=== PATIENT | female | born 1985 | race African-American/Black ===

== ENCOUNTER 2023-03-10 13:57 | Emergency (ER) | payer MEDICAID ==
[~2023-03-10] VITALS: Ht 177.8 cm; Wt 86.2 kg
[2023-03-10 14:18] VITALS: BP 111/71; TEMP 98.3; O2SAT 98
[2023-03-10] MEDS ORDERED: CEPH500C2 PO (15:46)
[2023-03-10] MEDS ORDERED: SULF1TAB48 PO (15:46)
== END 2023-03-10 16:10 | disposition home or self-care (01) ==
LOC: ER 14:07
DX: L03.115 Cellulitis of right lower limb (principal)